=== PATIENT | male | born 1990 | race Caucasian/White ===

== ENCOUNTER 2017-12-10 22:20 | Observation (INO) | payer OTHER ==
[2017-12-10] MEDS ORDERED: NA CHLORIDE 0.9% 1,000 ML ONE (22:51)
[2017-12-10] MEDS ORDERED: ONDANSETRON 4 MG/2 ML VIAL ONE (23:13)
[2017-12-10 23:27] LABS: Absolute Lymphocytes (CBC) 1.8 K/uL (0.7-4.9); Absolute Monocytes 0.9 K/uL (0.1-1.3); Absolute Neutrophil 11.1 K/uL (1.8-8.0); Basophils % 0.2 % (0-1.3); Eosinophils % 0.4 % (0-4.4); Hematocrit 42.9 % (39.6-49.0); Lymphocytes % 12.9 % (15.3-44.8); MCH 32.5 pg (27.0-35.0); MCV 94.3 fL (80-100); MPV 9.7 fL (7.6-11.3); Monocytes % 6.5 % (3.3-12.3); RBC Red Blood Cell Count 4.55 M/uL (4.33-5.43)
[2017-12-10 23:29] LABS: Albumin 4.5 g/dL (3.4-5.0); Bilirubin Direct 0.2 mg/dL (0-0.2); Bilirubin Total 0.5 mg/dL (0.2-1.0); Potassium 3.7 mmol/L (3.5-5.1); Protein, Total 7.7 g/dL (6.4-8.2)
--- NOTE | 2017-12-11 02:37 | ER ---
Nurse's Notes [facility] Name: Emre Morgan Age: 27 yrs Sex: Male : 1990 Arrival Date: 12/10/2017 Time: 22:26 Bed 7 Private MD: Diagnosis: Acute appendicitis Presentation: 12/10 22:31 Presenting complaint: Patient states: Abdominal pain that began today, worsening pain lp1 the past 2-3 hours, points to right and left lower abdomen; Denies any vomiting,constipation, diarrhea; slight nausea. Transition of care: patient was not received from another setting of care. Onset of symptoms was December 10, 2017. Risk Assessment: Do you want to hurt yourself or someone else? Patient reports no desire to harm self or others. Initial Sepsis Screen: Does the patient meet any 2 criteria? No. Patient's initial sepsis screen is negative. Does the patient have a suspected source of infection? No. Patient's initial sepsis screen is negative. Care prior to arrival: None. 22:31 Method Of Arrival: Ambulatory lp1 22:31 Acuity: JUANITA 3 lp1 Historical: - Allergies: 22:33 No Known Allergies; lp1 - Home Meds: 22:33 None [Active]; lp1 - PMHx: 22:33 None; lp1 - PSHx: 22:33 None; lp1 - Immunization history:: Adult Immunizations up to date. - Social history:: Smoking status: Patient/guardian denies using tobacco. - Ebola Screening: : No symptoms or risks identified at this time. Screenin:34 Abuse screen: Denies threats or abuse. Denies injuries from another. Nutritional lp1 screening: No deficits noted. Tuberculosis screening: No symptoms or risk factors identified. Fall Risk None identified. Assessment: 22:32 General: Appears in no apparent distress. comfortable, Behavior is calm, cooperative, ao appropriate for age. Pain: Complains of pain in right lower quadrant and left lower quadrant Pain currently is 2 out of 10 on a pain scale. Quality of pain is described as sharp. Neuro: Level of Consciousness is awake, alert, obeys commands, Oriented to person, place, time, situation, Appropriate for age Moves all extremities. Full function Speech is normal, Facial symmetry appears normal, Pupils are PERRLA. Cardiovascular: Capillary refill < 3 seconds Patient's skin is warm and dry. Respiratory: Airway is patent Respiratory effort is even, unlabored, Respiratory pattern is regular, symmetrical. GI: Abdomen is obese, Bowel sounds present X 4 quads. Abd is soft and non tender X 4 quads. Reports lower abdominal pain. : No signs and/or symptoms were reported regarding the genitourinary system. EENT: No signs and/or symptoms were reported regarding the EENT system. Derm: Skin is intact, Skin is moist, Skin is pink, warm \T\ dry. normal, Skin temperature is warm. Musculoskeletal: No signs and/or symptoms reported regarding the musculoskeletal system. Circulation, motion, and sensation intact. Range of motion: intact in all extremities. 23:31 Reassessment: Patient appears in no apparent distress at this time. Patient and/or ao family updated on plan of care and expected duration. Pain level reassessed. Patient is alert, oriented x 3, equal unlabored respirations, skin warm/dry/pink. Oral contrast was provided. Patient drinking oral contrast at this time. 23:39 Reassessment: Patient done with contrast. Erica from CT was notified. Waiting on CT scan. ao 12/11 00:37 Reassessment: Patient appears in no apparent distress at this time. Patient and/or ao family updated on plan of care and expected duration. Pain level reassessed. Patient is alert, oriented x 3, equal unlabored respirations, skin warm/dry/pink. Waiting on CT Scan. 00:47 Reassessment: Patient left to CT. ao 01:43 Reassessment: Patient appears in no apparent distress at this time. Patient and/or ao family updated on plan of care and expected duration. Pain level reassessed. Patient is alert, oriented x 3, equal unlabored respirations, skin warm/dry/pink. Waiting on Dispo orders. 02:30 Reassessment: Per Dr ochoa patient o stay in the hospital due to appendicitis. ao 02:44 Reassessment: Patient appears in no apparent distress at this time. Patient and/or ao family updated on plan of care and expected duration. Pain level reassessed. Patient is alert, oriented x 3, equal unlabored respirations, skin warm/dry/pink. Patient to stay in the hospital. Patient and family agree with POC. 03:37 Reassessment: Patient appears in no apparent distress at this time. Patient and/or ao family updated on plan of care and expected duration. Pain level reassessed. Patient is alert, oriented x 3, equal unlabored respirations, skin warm/dry/pink. Waiting on room assignment. Vital Signs: 12/10 22:34 BP 146 / 82; Pulse 82; Resp 18; Temp 98.6(O); Pulse Ox 99% on R/A; Weight 108.86 kg; lp1 Height 6 ft. 1 in. (185.42 cm); Pain 2/10; 23:31 BP 125 / 74; Pulse 85; Resp 14; Pulse Ox 99% on R/A; Pain 2/10; ao 12/11 00:37 BP 126 / 74; Pulse 82; Resp 16; Pulse Ox 100% on R/A; ao 02:30 BP 119 / 72; Pulse 81; Resp 16; Pulse Ox 100% on R/A; ao 03:37 BP 109 / 66; Pulse 78; Resp 14; Pulse Ox 100% on R/A; ao 12/10 22:34 Body Mass Index 31.66 (108.86 kg, 185.42 cm) lp1 ED Course: 12/10 22:26 Patient arrived in ED. ag3 22:27 Serafin Fields, JEAN is Primary Nurse. ao 22:27 Jere Ochoa MD is Attending Physician. pkl 22:33 Triage completed. lp1 22:34 Arm band placed on right wrist. lp1 22:43 Inserted saline lock: 20 gauge in right antecubital area, using aseptic technique. ao Blood collected. 23:33 Patient has correct armband on for positive identification. Pulse ox on. NIBP on. ao 12/11 00:[address] via wheelchair. kw1 01:03 CT Abd/Pelvis - W/Contrast In Process Unspecified. EDMS 01:05 CT completed. Patient tolerated procedure well. Patient moved back from CT. kw1 02:35 Charles Murillo MD is Hospitalizing Provider. pkl 03:47 No provider procedures requiring assistance completed. Patient admitted, IV remains in ao place. Administered Medications: 12/10 22:57 Drug: NS 0.9% 1000 ml Route: IV; Rate: 1000 ml; Site: right antecubital; ao 12/11 02:50 Follow up: IV Status: Completed infusion; IV Intake: 1000ml ao 12/10 23:10 Drug: Zofran 4 mg Route: IVP; Site: right antecubital; ao 12/11 03:14 Follow up: Response: No adverse reaction ao 02:39 Drug: NS 0.9% 1000 ml Route: IV; Rate: 125 ml/hr; Site: right antecubital; ao 03:14 Follow up: IV Status: Completed infusion; IV Intake: 10ml ao 03:15 Follow up: IV Status: Infusion continued upon admission ao 02:45 Drug: Mefoxin 1 grams Route: IVPB; Infused Over: 30 mins; Site: right antecubital; ao 03:15 Follow up: IV Status: Completed infusion; IV Intake: 10ml ao Intake: 02:50 IV: 1000ml; Total: 1000ml. ao 03:14 IV: 10ml; Total: 1010ml. ao 03:15 IV: 10ml; Total: 1020ml. ao Outcome: 02:36 Decision to Hospitalize by Provider. pkl 03:47 Admitted to Med/surg accompanied by tech, room 206, with chart, Report called to dayna Green RN 03:47 Condition: stable 03:47 Instructed on the need for admit. 04:11 Patient left the ED. ao Signatures: Dispatcher [employer] EDJere Moya MD MD pkChary Haji RN RN Serafin Hdz RN RN Ksenia Barnett1 Alie Mendieta3
--- NOTE | 2017-12-11 02:37 | EDPHYS ---
Physician Documentation [facility] Name: Emre Morgan Age: 27 yrs Sex: Male : 1990 Arrival Date: 12/10/2017 Time: 22:26 Bed 7 Private MD: ED Physician Jere Arreaga HPI: 12/10 22:43 This 27 yrs old Male presents to ER via Ambulatory with complaints of Abdominal Pain. pkl 22:43 The patient presents with abdominal pain in the lower abdomen. Onset: The pkl symptoms/episode began/occurred today. The symptoms do not radiate. Associated signs and symptoms: Pertinent positives: diarrhea. Historical: - Allergies: 22:33 No Known Allergies; lp1 - Home Meds: 22:33 None [Active]; lp1 - PMHx: 22:33 None; lp1 - PSHx: 22:33 None; lp1 - Immunization history:: Adult Immunizations up to date. - Social history:: Smoking status: Patient/guardian denies using tobacco. - Ebola Screening: : No symptoms or risks identified at this time. ROS: 22:43 Eyes: Negative for injury, pain, redness, and discharge, ENT: Negative for injury, pkl pain, and discharge, Neck: Negative for injury, pain, and swelling, Cardiovascular: Negative for chest pain, palpitations, and edema, Respiratory: Negative for shortness of breath, cough, wheezing, and pleuritic chest pain. 22:43 Abdomen/GI: Positive for abdominal pain, diarrhea, of the right lower quadrant and left lower quadrant. 22:43 Back: Negative for acute changes. 22:43 : Negative for urinary symptoms. 22:43 MS/extremity: Negative for acute changes. 22:43 Skin: Negative for rash. 22:43 Neuro: Negative for altered mental status. Exam: 22:43 Head/Face: Normocephalic, atraumatic. Eyes: Pupils equal round and reactive to light, pkl extra-ocular motions intact. Lids and lashes normal. Conjunctiva and sclera are non-icteric and not injected. Cornea within normal limits. Periorbital areas with no swelling, redness, or edema. ENT: Nares patent. No nasal discharge, no septal abnormalities noted. Tympanic membranes are normal and external auditory canals are clear. Oropharynx with no redness, swelling, or masses, exudates, or evidence of obstruction, uvula midline. Mucous membranes moist. Neck: Trachea midline, no thyromegaly or masses palpated, and no cervical lymphadenopathy. Supple, full range of motion without nuchal rigidity, or vertebral point tenderness. No Meningismus. Chest/axilla: Normal chest wall appearance and motion. Nontender with no deformity. No lesions are appreciated. Cardiovascular: Regular rate and rhythm with a normal S1 and S2. No gallops, murmurs, or rubs. Normal PMI, no JVD. No pulse deficits. Respiratory: Lungs have equal breath sounds bilaterally, clear to auscultation and percussion. No rales, rhonchi or wheezes noted. No increased work of breathing, no retractions or nasal flaring. 22:43 Abdomen/GI: Bowel sounds: normal, Palpation: soft, mild abdominal tenderness, in the right lower quadrant and left lower quadrant. 22:43 Back: Exam negative for acute changes. 22:43 : Exam negative for acute changes. 22:43 Musculoskeletal/extremity: Exam is negative for acute changes. 22:43 Skin: Exam negative for rash. 22:43 Neuro: Orientation: is normal, Mentation: is normal, Cranial nerves: grossly normal, Motor: is normal. Vital Signs: 22:34 BP 146 / 82; Pulse 82; Resp 18; Temp 98.6(O); Pulse Ox 99% on R/A; Weight 108.86 kg; lp1 Height 6 ft. 1 in. (185.42 cm); Pain 2/10; 23:31 BP 125 / 74; Pulse 85; Resp 14; Pulse Ox 99% on R/A; Pain 2/10; ao 12/11 00:37 BP 126 / 74; Pulse 82; Resp 16; Pulse Ox 100% on R/A; ao 02:30 BP 119 / 72; Pulse 81; Resp 16; Pulse Ox 100% on R/A; ao 03:37 BP 109 / 66; Pulse 78; Resp 14; Pulse Ox 100% on R/A; ao 12/10 22:34 Body Mass Index 31.66 (108.86 kg, 185.42 cm) lp1 MDM: 12/10 22:27 Patient medically screened. pkl 12/11 02:23 Data reviewed: vital signs, nurses notes, lab test result(s), radiologic studies, CT pkl scan. 12/10 22:42 Order name: Basic Metabolic Panel; Complete Time: 23:40 pkl 12/10 22:42 Order name: CBC with Diff; Complete Time: 23:28 pkl 12/10 22:42 Order name: Creatinine for Radiology; Complete Time: 00:03 pkl 12/10 22:42 Order name: Hepatic Function; Complete Time: 23:40 pkl 12/10 22:42 Order name: Lipase; Complete Time: 23:40 pkl 12/11 01:55 Order name: Urine Dipstick--Ancillary (enter results); Complete Time: 04:16 cc 12/10 22:42 Order name: CT Abd/Pelvis - W/Contrast pkl 12/11 02:53 Order name: Basic Metabolic Panel EDMS 12/11 02:53 Order name: Basic Metabolic Panel EDMS 12/11 02:53 Order name: CBC with Automated Diff EDMS 12/11 02:53 Order name: CBC with Automated Diff EDMS 12/10 22:42 Order name: IV Saline Lock; Complete Time: 22:43 pkl 12/10 22:42 Order name: Labs collected and sent; Complete Time: 22:57 pkl 12/11 02:53 Order name: NPO EDMS Administered Medications: 12/10 22:57 Drug: NS 0.9% 1000 ml Route: IV; Rate: 1000 ml; Site: right antecubital; ao 12/11 02:50 Follow up: IV Status: Completed infusion; IV Intake: 1000ml ao 12/10 23:10 Drug: Zofran 4 mg Route: IVP; Site: right antecubital; ao 12/11 03:14 Follow up: Response: No adverse reaction ao 02:39 Drug: NS 0.9% 1000 ml Route: IV; Rate: 125 ml/hr; Site: right antecubital; ao 03:14 Follow up: IV Status: Completed infusion; IV Intake: 10ml ao 03:15 Follow up: IV Status: Infusion continued upon admission ao 02:45 Drug: Mefoxin 1 grams Route: IVPB; Infused Over: 30 mins; Site: right antecubital; ao 03:15 Follow up: IV Status: Completed infusion; IV Intake: 10ml ao Disposition: 12/11/17 02:36 Hospitalization ordered by Charles Murillo for Observation. Preliminary diagnosis is Acute appendicitis. - Bed requested for Telemetry/MedSurg (observation). - Status is Observation. ao - Condition is Stable. - Problem is new. - Symptoms are unchanged. UTI on Admission? No Signatures: Dispatcher [employer] EDMS Jere Arreaga MD MD pkl Meaghan Deluca, RN RN fc Chary Lombardi, RN RN lp1 Serafin Fields RN RN ao Corrections: (The following items were deleted from the chart) 03:13 02:36 Hospitalization Ordered by Charles Murillo MD for Observation. Preliminary diagnosis fc is Acute appendicitis. Bed requested for Telemetry/MedSurg (observation). Status is Observation. Condition is Stable. Problem is new. Symptoms are unchanged. UTI on Admission? No. pkl 04:11 03:13 12/11/2017 02:36 Hospitalization Ordered by Charles Murillo MD for Observation. ao Preliminary diagnosis is Acute appendicitis. Bed requested for Telemetry/MedSurg (observation). Status is Observation. Condition is Stable. Problem is new. Symptoms are unchanged. UTI on Admission? No. fc
[2017-12-11] MEDS ORDERED: NA CHLORIDE 0.9% 1,000 ML ONE (02:39)
[2017-12-11] MEDS ORDERED: ACETAMINOPHEN 500 MG TAB PO PRN (02:45)
[2017-12-11] MEDS ORDERED: ONDANSETRON 4 MG/2 ML VIAL IV PRN ×2 (02:51→12:40)
[2017-12-11] MEDS ORDERED: MORPHINE 4 MG/ML SYR IV PRN (02:51)
[2017-12-11] MEDS ORDERED: CEFOXITIN/SWI 1gm 1 GM/10 ML SYR ONE (02:53)
[2017-12-11 03:27] LABS: Urine Blood NEGATIVE (NEG); Urine Glucose NEGATIVE (NEG); Urine Protein NEGATIVE (NEG); Urine pH 7.5 (5.0-7.0)
[2017-12-11] MEDS: NA CHLORIDE 0.9% 1,000 ML IV SCH ×2 (04:32→09:23)
[2017-12-11] MEDS ORDERED: CEFOXITIN SODIUM 1 GM/VIAL IVPB SCH (06:00)
--- NOTE | 2017-12-11 08:11 | RAD REPORT ---
EXAM DESCRIPTION: CT - Abdomen Pelvis W Contrast - 12/11/2017 3:15 am CLINICAL HISTORY: Abdominal pain. Right lower quadrant pain COMPARISON: None. TECHNIQUE: Computed axial tomography of the abdomen and pelvis was obtained. 100 cc Isovue-300 is ad ministered intravenously. Oral contrast was given.A preliminary report was generated by [employer] and reviewed prior to dictation All CT scans are performed using dose optimization technique as appropriate and may include automated exposure control or mA/KV adjustment according to patient size. FINDINGS: The liver, spleen, pancreas, adrenals and kidneys appear unremarkable. The appendix is dilated and fluid-filled with stranding in the adjacent fat. The appendix extends med ially and superiorly from the cecum. An abscess is not noted. Free air is not seen. There is no evidence of diverticulitis Small inguinal hernias contain fat IMPRESSION: Appendicitis
[2017-12-11] MEDS ORDERED: BUPIVACAINE 0.5% PF 10 ML VIAL ONE (10:24)
[2017-12-11] MEDS ORDERED: FENTANYL CITR 100 MCG/2 ML ONE ×3 (10:26→12:14)
[2017-12-11] MEDS ORDERED: ROCURONIUM 50 MG/5 ML VIAL IV ONE (10:26)
[2017-12-11] MEDS ORDERED: PROPOFOL 200 MG/20 ML VIAL IV ONE (10:26)
[2017-12-11] MEDS ORDERED: MIDAZOLAM HCL 2 MG/2 ML INJ ONE (10:26)
[2017-12-11] MEDS ORDERED: LIDOCAINE 2% MPF 5 ML VIAL ONE (10:26)
[2017-12-11] MEDS ORDERED: METRONIDAZOLE 500mg IVPB 0 MG/0 ML BAG IV ONE (10:41)
[2017-12-11] MEDS ORDERED: Ringers Lactate 1,000 ML IV ONE (10:57)
[2017-12-11] MEDS ORDERED: CEFOXITIN/SWI 1gm 1 GM/10 ML SYR IV SCH ×2 (12:00→18:00)
[2017-12-11] MEDS ORDERED: CEFOXITIN/NS 1gm 1 GM/50 ML BAG IV SCH (12:00)
[2017-12-11] MEDS ORDERED: ONDANSETRON HCL 40 MG/20 ML VIAL ONE (12:02)
[2017-12-11] MEDS ORDERED: GLYCOPYRROLATE 0.2 MG/ML SYR ONE (12:02)
[2017-12-11] MEDS ORDERED: KETOROLAC 30 MG/ML INJ ONE (12:02)
--- NOTE | 2017-12-11 12:09 | P.OP ---
Food Service Clerk: Claudine PELAYO Preoperative diagnosis: Acute Appendicitis Postoperative diagnosis: same Primary procedure: Lap Appy Anesthesia: gen Estimated blood loss: min Specimen: appy Findings: as above Complications: None Transferred to: Recovery Room Condition: Good
[2017-12-11] MEDS ORDERED: NEOSTIGMINE 1 MG/ML -5 ML SYRINGE ONE (12:12)
[2017-12-11] MEDS ORDERED: HYDROMORPHONE HCL 1 MG/ML INJ IV PRN (12:40)
[2017-12-11] MEDS ORDERED: HYDROCODONE/APAP 7.5/325 MG TAB PO PRN (12:40)
[2017-12-11] MEDS ORDERED: SUCCINYLCHOLINE 20 MG/ML (10 ML) IV ONE (12:40)
[2017-12-11] MEDS ORDERED: Ringers Lactate 1,000 ML IV SCH (13:00)
--- NOTE | 2017-12-11 14:14 | PREOPHP ---
Date of Admission: 12/11/2017 Reason: Abdominal pain. History Of Present Illness: The patient is a 27-year-old gentleman who comes in with diffuse lower a bdominal pain, localizing on the right side. He did have an episode of nausea and vomiting _ yesterday and 1 episode of diarrhea. No blood in his stool. No dysuria or hematuria. No sore thr oat, runny nose, cough, headaches, or dizziness. No chest pain. No fever or chills. Review of Systems: Otherwise unremarkable. Past Medical History: Negative. Past Surgical History: Negative. Allergies: NO ALLERGIES. Social History: The patient does not smoke. Family History: Noncontributory. Physical Examination: Vital Signs: Stable. He is afebrile. General: He is awake, alert, and oriented x3. Head and Neck: Cranial nerves 2 through 12 are grossly within normal limits. No neck masses. No JV D. Throat clear. Neck: Supple. Chest: Clear. Heart: S1, S2. Abdomen: Soft, nondistended. Positive bowel sounds. Positive right lower quadrant tenderness with minimal rebound. No rigidity or guarding. Extremity: Adequately perfused. Nontender. Neuro: Nonfocal. Diagnostic Data: White count is 13.9 with a left shift. Chemistry reviewed, essentially within norm al limits. ALT is slightly elevated. CT of the abdomen and pelvis reviewed. It shows the appendix to be fluid filled with stranding in the adjacent fat and consistent with acute appendicitis. Assessment: Acute appendicitis. Plan: Admit n.p.o., IV fluid, IV antibiotic, to the OR for lap appy, possible open. The patient und erstands the risks, benefits, and alternatives and agrees to the procedure. /MODL Voice ID: [id number]
--- NOTE | 2017-12-11 16:05 | OP ---
Date of Procedure: 12/11/2017 Surgeon: Charles Murillo MD Preoperative Diagnosis: Acute appendicitis. Preoperative Diagnosis: Acute appendicitis. Procedure: Laparoscopic appendectomy. Estimated Blood Loss: Minimal. Specimen: Appendix. Findings: As above. Anesthesia: General. Complications: None. Disposition: The patient tolerated the procedure in stable condition and taken to Recovery in good g eneral condition. Procedure In Detail: The patient was brought to the OR and placed in supine position. General anest hesia was began. The patient was prepped and draped in the sterile fashion. Marcaine 0.5% was infil trated locally. A 15-blade was used to make a 1 cm supraumbilical midline incision. Subcutaneous ti ssue divided. Fascia was identified and divided. A #1 Vicryl stay suture was placed. Peritoneal ca vity was entered with sharp and blunt dissection. A 12 mm trocar was placed into the peritoneal cavi ty under direct vision. Pneumoperitoneum was established. Then two 5 trocars placed, 1 in the supra pubic region, 1 in the left lower quadrant. Laparoscopy revealed acute suppurative appendicitis. Th e appendix and the base of the appendix and mesoappendix were clearly identified. Endo-FIORDALIZA stapling device was used to divide both structures and then the appendix retrieved through the umbilicus via a n EndoCatch bag. Right lower quadrant was irrigated. Effluent was clear. No evidence of bleeding o r bowel injury appreciated. Subsequently, all trocars were removed under direct vision. Stay suture s were tied to each other to reapproximate the fascial defect. Subcu wounds irrigated. Bleeding con trolled with cautery. A 3-0 chromic used to reapproximate the subcutaneous tissue and close the skin . Sterile dressing was applied. The patient was awakened and taken to Recovery in good general cond ition. /MODL Voice ID: [id number] Report ID: [id number]
--- NOTE | 2017-12-12 05:12 | DS ---
Date of Discharge: 12/11/2017 Admitting Diagnosis: Acute appendicitis. Discharge Diagnosis: Acute appendicitis. Procedure: Laparoscopic appendectomy. Hospital Course: The patient is a 27-year-old gentleman, underwent the aforementioned procedure. Po stoperatively, he is tolerating diet, ambulating, pain control on p.o. pain medication, afebrile. Th erefore, the patient will be discharged to home. Disposition: Home. Condition: Stable. Discharge Instructions: Resume home medications and diet. Activity as tolerated. No heavy lifting. Remove outer dressing in 2 days. Shower. Keep wound clean, dry. Follow up in my office in 1 week . Call for appointment. Tylenol No. 3 one tablet p.o. q.4 p.r.n. pain. /MALENA Voice ID: [id number] Report ID: [id number]
== END 2017-12-11 15:15 | disposition home or self-care (01) ==
LOC: ER 22:20 → ERHOLD 12-11 03:39 → 2ND 12-11 03:49
PROVIDERS: ADMIT Surgery; ATTEND Surgery
PROC: 0DTJ4ZZ Resection of Appendix, Percutaneous Endoscopic Approach (ICD-10-PCS; principal; 2017-12-11 11:00)
DX: K35.80 Unspecified acute appendicitis (principal)
CPT/HCPCS: 36415; 74177; 80048; 80076; 81003; 83690; 85025; 88304; 96361; 96365; 96375; 99285; G0378; J0330; J0694; J2250; J2405; J2710; J3010; J7030; Q9967